=== PATIENT | male | born 1965 ===

== ENCOUNTER 2022-01-31 14:28 | Emergency (ER) | payer SELFPAY ==
[2022-01-31 14:34] VITALS: BP 175/100
== END 2022-01-31 19:20 | disposition left against medical advice (07) ==
LOC: ED 14:28
DX: S09.93XA Unspecified injury of face, initial encounter (principal); Z53.21 Procedure and treatment not carried out due to patient leaving prior to being seen by health care provider; V89.2XXA Person injured in unspecified motor-vehicle accident, traffic, initial encounter; Y93.89 Activity, other specified; Y92.89 Other specified places as the place of occurrence of the external cause; Y99.8 Other external cause status